=== PATIENT | male | born 1970 | race Caucasian/White ===

== ENCOUNTER 2021-04-09 19:15 | Emergency (ER) | payer OTHER ==
[2021-04-09] MEDS ORDERED: VIBRAMYCIN100 MG PO (21:31)
== END 2021-04-09 21:47 | disposition home or self-care (01) ==
LOC: ER1 19:15
DX: L73.9 Follicular disorder, unspecified (principal); F17.200 Nicotine dependence, unspecified, uncomplicated; Z90.49 Acquired absence of other specified parts of digestive tract
CPT/HCPCS: 99283